=== PATIENT | male | born 1995 ===

== ENCOUNTER 2018-04-25 00:16 | Emergency (ER) | payer MEDICAID ==
[2018-04-25 00:57] VITALS: BMI 27.2
[2018-04-25 01:02] VITALS: RESP 18; O2SAT 100
[2018-04-25] MEDS ORDERED: Sodium Chloride 0.9% 1,000 ML IV STA (01:07)
[2018-04-25] MEDS ORDERED: Apap-Butalbital-Caffeine 325-50-40mg Tab PO ONE (01:28)
--- NOTE | 2018-04-25 01:43 | ED PDOC ---
Arrival/HPI - General Chief Complaint: Headache Time Seen by Provider: 04/25/18 01:01 Historian: Patient - History of Present Illness Narrative History of Present Illness (Text): 04/25/18 01:40 22 year old male, whose past medical history includes chronic headaches, presents to the emergency department with headache, since today. Patient informs having no changes in vision. Patient states he usually gets headaches in the cold, and he is in the cold often due to homelessness. Patient denies taking any medication for relief. Patient denies any abdominal pain, nausea, vomiting, diarrhea, fever, chills, chest pain, shortness of breath, or any other complaints. Time/Duration: Prior to Arrival, Other (Chronic) Symptom Onset: Gradual Symptom Course: Unchanged Quality: Pressure Past Medical History - Provider Review Nursing Documentation Reviewed: Yes - Cardiac Hx Hypertension: No - Pulmonary Hx Tuberculosis: No - Neurological Hx Seizures: No - Hematological/Oncological Hx Cancer: No - Genitourinary/Gynecological Hx Sexually Transmitted Diseases: No - Psychiatric Hx Substance Use: Yes - Surgical History Other/Comment: Rt pinky surgery. - Anesthesia Hx Anesthesia: Yes Family/Social History - Physician Review Nursing Documentation Reviewed: Yes Family/Social History: No Known Family HX Smoking Status: Light Smoker < 10 Cigarettes Daily Hx Alcohol Use: Yes Hx Substance Use: Yes Allergies/Home Meds Allergies/Adverse Reactions: Allergies No Known Allergies Allergy (Verified 04/25/18 00:58) Review of Systems - Physician Review All systems were reviewed & negative as marked: Yes - Review of Systems Constitutional: absent: Fevers, Night Sweats Eyes: absent: Vision Changes Respiratory: absent: SOB Cardiovascular: absent: Chest Pain Gastrointestinal: absent: Abdominal Pain, Diarrhea, Nausea, Vomiting Neurological: Headache Physical Exam Vital Signs Reviewed: Yes Vital Signs Temp Pulse Resp BP Pulse Ox 04/25/18 01:01 98.7 F 66 18 123/66 100 Temperature: Afebrile Blood Pressure: Normal Pulse: Regular Respiratory Rate: Normal Appearance: Positive for: Well-Appearing, Non-Toxic, Comfortable Pain Distress: None Mental Status: Positive for: Alert and Oriented X 3 - Systems Exam Head: Present: Atraumatic, Normocephalic Pupils: Present: PERRL Extroacular Muscles: Present: EOMI Conjunctiva: Present: Normal Mouth: Present: Moist Mucous Membranes Neck: Present: Normal Range of Motion Respiratory/Chest: Present: Clear to Auscultation, Good Air Exchange. No: Respiratory Distress, Accessory Muscle Use Cardiovascular: Present: Regular Rate and Rhythm, Normal S1, S2. No: Murmurs Abdomen: No: Tenderness, Distention, Peritoneal Signs Back: Present: Normal Inspection Upper Extremity: Present: Normal Inspection. No: Cyanosis, Edema Lower Extremity: Present: Normal Inspection. No: Edema Neurological: Present: Speech Normal Skin: Present: Warm, Dry, Normal Color. No: Rashes Psychiatric: Present: Alert, Oriented x 3, Normal Insight, Normal Concentration Medical Decision Making ED Course and Treatment: 04/25/18 01:46 Impression: 22 year old male presents with headache Plan: -- Fioricet -- Toradol -- Drug screen -- Reassess and disposition Prior Visits: Notes and results from previous visits were reviewed. Progress Notes: - Medication Orders Current Medication Orders: Discontinued Medications Acetaminophen/Butalbital/Caffeine (Fioricet) 1 tab PO ONCE ONE Stop: 04/25/18 01:29 Ketorolac Tromethamine (Toradol) 60 mg IM STAT STA Stop: 04/25/18 01:27 - Scribe Statement The provider has reviewed the documentation as recorded by the Edwigeibjass Geiger Provider Scribe Attestation: All medical record entries made by the Scribe were at my direction and personally dictated by me. I have reviewed the chart and agree that the record accurately reflects my personal performance of the history, physical exam, medical decision making, and the department course for this patient. I have also personally directed, reviewed, and agree with the discharge instructions and disposition. Disposition/Present on Arrival - Present on Arrival Any Indicators Present on Arrival: No History of DVT/PE: No History of Uncontrolled Diabetes: No Urinary Catheter: No History of Decub. Ulcer: No History Surgical Site Infection Following: None - Disposition Have Diagnosis and Disposition been Completed?: Yes Diagnosis: Headache Disposition: HOME/ ROUTINE Disposition Time: 02:19 Condition: IMPROVED Discharge Instructions (ExitCare): Cluster Headache (DC), Tension Headache (DC) Print Language: POLISH Additional Instructions: All medical record entries made by the Scribe were at my direction and personally dictated by me. I have reviewed the chart and agree that the record accurately reflects my personal performance of the history, physical exam, medical decision making, and the department course for this patient. I have also personally directed, reviewed, and agree with the discharge instructions and disposition. Prescriptions: Acetaminophen/Butalbital/Caf [Fioricet] 1 tab PO Q6H #2 tab Referrals: Lianet Durham MD [Medical Doctor] - Follow up with primary [facility] [place] - Follow up with primary Forms: [facility] (French)
[2018-04-25 03:08] LABS: BARBITURATES, UR NEGATIVE (NEGATIVE); BENZODIAZEPINES, UR NEGATIVE (NEGATIVE); OPIATES, UR NEGATIVE (NEGATIVE); PHENCYCLIDINE, UR NEGATIVE (NEGATIVE)
[2018-04-25 03:57] VITALS: BP 120/64; PULSE 68; TEMP 98.5
== END 2018-04-25 02:50 | disposition home or self-care (01) ==
LOC: ED 00:16
DX: R51 Headache (principal)

== ENCOUNTER 2018-04-30 01:47 | Emergency (ER) | payer MEDICAID ==
[2018-04-30 01:47] VITALS: BMI 27.2
[2018-04-30 02:58] VITALS: RESP 18; TEMP 98
[2018-04-30] MEDS ORDERED: Sodium Chloride 0.9% 1,000 ML IV STA (02:59)
--- NOTE | 2018-04-30 03:09 | ED PDOC ---
Arrival/HPI - General Chief Complaint: Abdominal Pain Time Seen by Provider: 04/30/18 02:43 Historian: Patient - History of Present Illness Narrative History of Present Illness (Text): 04/30/18 03:05 22 year old male, whose past medical history includes an adjustment disorder, presents to the emergency department complaining of rt lower abdominal discomfort x 1 day. Patient states he was working out prior and is unsure if possibly he may have caused a muscle strain. Patient denies any fever, chills, chest pain, shortness of breath, nausea, vomiting, diarrhea, urinary symptoms, back pain, neck pain, headache, dizziness, or any other complaints. Time/Duration: 24 hours Symptom Onset: Gradual Symptom Course: Unchanged Activities at Onset: Light Context: Exertion Past Medical History - Provider Review Nursing Documentation Reviewed: Yes - Infectious Disease Hx of Infectious Diseases: None - Cardiac Hx Hypertension: No - Pulmonary Hx Tuberculosis: No - Neurological Hx Seizures: No - Hematological/Oncological Hx Cancer: No - Genitourinary/Gynecological Hx Sexually Transmitted Diseases: No - Psychiatric Hx Substance Use: Yes - Surgical History Other/Comment: Rt pinky surgery. - Anesthesia Hx Anesthesia: Yes Hx Anesthesia Reactions: No Hx Malignant Hyperthermia: No Family/Social History - Physician Review Nursing Documentation Reviewed: Yes Family/Social History: Unknown Family HX Smoking Status: Light Smoker < 10 Cigarettes Daily Hx Alcohol Use: Yes Hx Substance Use: Yes Allergies/Home Meds Allergies/Adverse Reactions: Allergies No Known Allergies Allergy (Verified 04/30/18 02:59) Home Medications: Home Meds Medication Instructions Recorded Confirmed No Known Home Med 04/30/18 04/30/18 Review of Systems - Physician Review All systems were reviewed & negative as marked: Yes - Review of Systems Constitutional: Normal Eyes: Normal ENT: Normal Respiratory: Normal. absent: SOB, Cough Cardiovascular: Normal. absent: Chest Pain Gastrointestinal: Abdominal Pain (RLQ pain). absent: Diarrhea, Nausea, Vomiting Genitourinary Male: Normal. absent: Dysuria, Frequency Musculoskeletal: Normal. absent: Back Pain, Neck Pain Skin: Normal. absent: Rash Neurological: Normal. absent: Headache, Dizziness Endocrine: Normal Hemo/Lymphatic: Normal Psychiatric: Normal Physical Exam Vital Signs Reviewed: Yes Vital Signs Temp Pulse Resp Pulse Ox 04/30/18 02:55 98 F 69 18 100 Temperature: Afebrile Blood Pressure: Normal Pulse: Regular Respiratory Rate: Normal Appearance: Positive for: Well-Appearing, Non-Toxic, Comfortable Pain Distress: None Mental Status: Positive for: Alert and Oriented X 3 - Systems Exam Head: Present: Atraumatic, Normocephalic Pupils: Present: PERRL Extroacular Muscles: Present: EOMI Conjunctiva: Present: Normal Mouth: Present: Moist Mucous Membranes Neck: Present: Normal Range of Motion Respiratory/Chest: Present: Clear to Auscultation, Good Air Exchange. No: Respiratory Distress, Accessory Muscle Use Cardiovascular: Present: Regular Rate and Rhythm, Normal S1, S2. No: Murmurs Abdomen: Present: Tenderness (right lower abdomen), Normal Bowel Sounds. No: Distention, Peritoneal Signs, Rebound, Guarding, Hernias Back: Present: Normal Inspection Upper Extremity: Present: Normal Inspection. No: Cyanosis, Edema Lower Extremity: Present: Normal Inspection. No: Edema Neurological: Present: GCS=15, CN II-XII Intact, Speech Normal, Motor Func Grossly Intact, Normal Sensory Function Skin: Present: Warm, Dry, Normal Color. No: Rashes Psychiatric: Present: Alert, Oriented x 3, Normal Insight, Normal Concentration Medical Decision Making ED Course and Treatment: 04/30/18 03:09 Impression: 22 year old male presents to the Emergency department complaining of RLQ pain x day. Plan: -- CT Abd/Pelvis -- Labs -- UA -- Reassess and disposition Progress Notes: 04/30/18 05:[address] scan study.Understands in full risk including possibility of appendicitis/infection/.Patient to sign out Against Medical Advice. - RAD Interpretation Radiology Orders: 04/30/18 03:01 ABD & PELVIS IV CONTRAST ONLY [CT] Stat - Medication Orders Current Medication Orders: Sodium Chloride (Sodium Chloride 0.9%) 1,000 mls @ 999 mls/hr IV .Q1H1M STA Stop: 04/30/18 03:59 - Scribe Statement The provider has reviewed the documentation as recorded by the Scribjass Mcdermott All medical record entries made by the Scribe were at my direction and personally dictated by me. I have reviewed the chart and agree that the record accurately reflects my personal performance of the history, physical exam, medical decision making, and the department course for this patient. I have also personally directed, reviewed, and agree with the discharge instructions and disposition. Disposition/Present on Arrival - Present on Arrival Any Indicators Present on Arrival: No History of DVT/PE: No History of Uncontrolled Diabetes: No Urinary Catheter: No History of Decub. Ulcer: No History Surgical Site Infection Following: None - Disposition Have Diagnosis and Disposition been Completed?: Yes Diagnosis: Abdominal pain Disposition: AGAINST MEDICAL ADVICE Disposition Time: 05:23 Patient Problems: Current Active Problems Problem Status Onset Abdominal pain Acute Condition: STABLE Referrals: Bruna Sotelo [Primary Care Provider] - Follow up with primary Forms: [employer] (Yakut)
[2018-04-30 03:55] LABS: MEAN CELL VOLUME 87.7 fl (80.0-105.0); MEAN CORPUSCULAR HEMOGLOBIN 28.4 pg (25.0-35.0); MEAN CORPUSCULAR HGB CONC 32.3 g/dl (31.0-37.0); MEAN PLATELET VOLUME 9.5 fl (7.0-11.0); RBC 4.23 10^6/uL (3.5-6.1); RED CELL DISTRIBUTION WIDTH 13.7 % (11.5-14.5); WHITE BLOOD COUNT 8.8 10^3/uL (4.5-11.0)
[2018-04-30 04:24] LABS: ALB/GLOB RATIO 1.4 (1.1-1.8); ALBUMIN 3.8 g/dL (3.0-4.8); ALT/SGPT 29 U/L (7-56); AST/SGOT 17 U/L (17-59); BLOOD UREA NITROGEN 17 mg/dL (7-21); CALCIUM 8.9 mg/dL (8.4-10.5); GFR NON-AFRICAN AMERICAN > 60; LIPASE 42 U/L (23-300)
[2018-04-30] MEDS ORDERED: Iohexol 300 100 ML IJ ONE (04:42)
[2018-04-30 05:58] VITALS: BP 139/88; PULSE 67; O2SAT 99
== END 2018-04-30 05:30 | disposition left against medical advice (07) ==
LOC: ED 01:47
DX: R10.31 Right lower quadrant pain (principal); F17.210 Nicotine dependence, cigarettes, uncomplicated
CPT/HCPCS: 80053; 81003; 83690; 85027; 96360; 99285; J7030; Q9967

== ENCOUNTER 2018-05-01 00:13 | Emergency (ER) | payer MEDICAID ==
[2018-05-01 00:13] VITALS: BMI 27.2
== END 2018-05-01 02:48 | disposition left against medical advice (07) ==
LOC: ED 00:13
DX: Z02.89 Encounter for other administrative examinations (principal); R10.9 Unspecified abdominal pain

== ENCOUNTER 2018-05-03 02:17 | Emergency (ER) | payer MEDICAID ==
[2018-05-03 02:18] VITALS: BMI 27.2
[2018-05-03 03:14] VITALS: TEMP 97.9; O2SAT 99
--- NOTE | 2018-05-03 03:14 | ED PDOC ---
Arrival/HPI - General Chief Complaint: Headache Time Seen by Provider: 05/03/18 02:21 Historian: Patient - History of Present Illness Narrative History of Present Illness (Text): 05/03/18 03:12 Ruddy Laguna is a 22 year old male, whose past medical history includes chronic headaches and adjustment disorder, who presents to the Emergency department complaining of headache. Patient states he has been experiencing a mild headache, similar to prior chronic headaches. Patient also reports he is homeless and is requesting a place to stay. Patient denies any fever, chills, chest pain, shortness of breath, nausea, vomiting, diarrhea, urinary symptoms, back pain, neck pain, focal neurological deficits, dizziness, or any other complaints. Symptom Onset: Gradual Symptom Course: Unchanged Activities at Onset: Light Context: Street Past Medical History - Provider Review Nursing Documentation Reviewed: Yes - Infectious Disease Hx of Infectious Diseases: None - Cardiac Hx Hypertension: No - Pulmonary Hx Tuberculosis: No - Neurological Hx Seizures: No - Hematological/Oncological Hx Cancer: No - Genitourinary/Gynecological Hx Sexually Transmitted Diseases: No - Psychiatric Hx Substance Use: Yes - Surgical History Other/Comment: Rt pinky surgery. - Anesthesia Hx Anesthesia: Yes Hx Anesthesia Reactions: No Hx Malignant Hyperthermia: No Family/Social History - Physician Review Nursing Documentation Reviewed: Yes Family/Social History: Unknown Family HX Smoking Status: Light Smoker < 10 Cigarettes Daily Hx Alcohol Use: Yes Hx Substance Use: Yes Allergies/Home Meds Allergies/Adverse Reactions: Allergies No Known Allergies Allergy (Verified 04/30/18 02:59) Home Medications: Home Meds Medication Instructions Recorded Confirmed RX: No Known Home Med 04/30/18 05/03/18 Review of Systems - Physician Review All systems were reviewed & negative as marked: Yes - Review of Systems Constitutional: Normal. absent: Fevers Eyes: Normal ENT: Normal Respiratory: Normal. absent: SOB, Cough Cardiovascular: Normal. absent: Chest Pain Gastrointestinal: Normal. absent: Abdominal Pain, Diarrhea, Nausea, Vomiting Genitourinary Male: Normal. absent: Dysuria, Frequency, Hematuria, Urinary Output Changes Musculoskeletal: Normal. absent: Back Pain, Neck Pain Skin: Normal. absent: Rash Neurological: Headache. absent: Dizziness Endocrine: Normal Hemo/Lymphatic: Normal Psychiatric: Normal Physical Exam Vital Signs Reviewed: Yes Temperature: Afebrile Blood Pressure: Normal Pulse: Regular Respiratory Rate: Normal Appearance: Positive for: Well-Appearing, Non-Toxic, Comfortable Pain Distress: None Mental Status: Positive for: Alert and Oriented X 3 - Systems Exam Head: Present: Atraumatic, Normocephalic Pupils: Present: PERRL Extroacular Muscles: Present: EOMI Conjunctiva: Present: Normal Mouth: Present: Moist Mucous Membranes Neck: Present: Normal Range of Motion Respiratory/Chest: Present: Clear to Auscultation, Good Air Exchange. No: Respiratory Distress, Accessory Muscle Use Cardiovascular: Present: Regular Rate and Rhythm, Normal S1, S2. No: Murmurs Abdomen: No: Tenderness, Distention, Peritoneal Signs Back: Present: Normal Inspection Upper Extremity: Present: Normal Inspection. No: Cyanosis, Edema Lower Extremity: Present: Normal Inspection. No: Edema Neurological: Present: GCS=15, CN II-XII Intact, Speech Normal Skin: Present: Warm, Dry, Normal Color. No: Rashes Psychiatric: Present: Alert, Oriented x 3, Normal Insight, Normal Concentration Medical Decision Making ED Course and Treatment: 05/03/18 03:12 Impression: 22 year old homeless male complaining of chronic headache, requesting a place to stay. Plan: -- Reassess and disposition Progress Notes: - Scribe Statement The provider has reviewed the documentation as recorded by the [employer] Provider Scribe Attestation: All medical record entries made by the Scribe were at my direction and personally dictated by me. I have reviewed the chart and agree that the record accurately reflects my personal performance of the history, physical exam, medical decision making, and the department course for this patient. I have also personally directed, reviewed, and agree with the discharge instructions and disposition. Disposition/Present on Arrival - Present on Arrival Any Indicators Present on Arrival: No History of DVT/PE: No History of Uncontrolled Diabetes: No Urinary Catheter: No History of Decub. Ulcer: No History Surgical Site Infection Following: None - Disposition Have Diagnosis and Disposition been Completed?: Yes Diagnosis: Chronic headache disorder Disposition: HOME/ ROUTINE Disposition Time: 06:30 Condition: IMPROVED Referrals: Bruna Sotelo [Primary Care Provider] - Follow up with primary Forms: [employer] (Thai)
[2018-05-03 06:07] VITALS: BP 131/68; PULSE 78; RESP 17
== END 2018-05-03 06:21 | disposition home or self-care (01) ==
LOC: ED 02:17
DX: G89.29 Other chronic pain (principal); R51 Headache; F17.210 Nicotine dependence, cigarettes, uncomplicated; Z59.0 Homelessness

== ENCOUNTER 2018-05-17 02:56 | Emergency (ER) | payer MEDICAID ==
[2018-05-17 02:57] VITALS: BMI 27.2
[2018-05-17 03:07] VITALS: RESP 18; TEMP 97.9; O2SAT 100
--- NOTE | 2018-05-17 03:11 | ED PDOC ---
Arrival/HPI - General Chief Complaint: Headache Time Seen by Provider: 05/17/18 03:03 Historian: Patient - History of Present Illness Narrative History of Present Illness (Text): 05/17/18 03:08 Ruddy Laguna is a 22 year old male, whose past medical history includes chronic headaches and adjustment disorder, who presents to the Emergency department complaining of headache. Patient states he has been experiencing a frontal headache, similar to prior chronic headaches. Patient states he did not taken any medication for pain at home. Patient denies any head trauma/injury, fever, chills, chest pain, shortness of breath, nausea, vomiting, back pain, neck pain, focal neurological deficits, dizziness, or any other complaints. Symptom Onset: Gradual Symptom Course: Unchanged Activities at Onset: Light Context: Home Past Medical History - Provider Review Nursing Documentation Reviewed: Yes - Infectious Disease Hx of Infectious Diseases: None - Cardiac Hx Hypertension: No - Pulmonary Hx Tuberculosis: No - Neurological Hx Seizures: No - Hematological/Oncological Hx Cancer: No - Genitourinary/Gynecological Hx Sexually Transmitted Diseases: No - Psychiatric Hx Substance Use: Yes - Surgical History Other/Comment: Rt pinky surgery. - Anesthesia Hx Anesthesia: Yes Hx Anesthesia Reactions: No Hx Malignant Hyperthermia: No Family/Social History - Physician Review Nursing Documentation Reviewed: Yes Family/Social History: Unknown Family HX Smoking Status: Light Smoker < 10 Cigarettes Daily Hx Alcohol Use: Yes Hx Substance Use: Yes Allergies/Home Meds Allergies/Adverse Reactions: Allergies No Known Allergies Allergy (Verified 04/30/18 02:59) Home Medications: Home Meds Medication Instructions Recorded Confirmed No Known Home Med 04/30/18 05/17/18 Review of Systems - Physician Review All systems were reviewed & negative as marked: Yes - Review of Systems Constitutional: Normal. absent: Fevers Eyes: Normal ENT: Normal Respiratory: Normal. absent: SOB, Cough Cardiovascular: Normal. absent: Chest Pain Gastrointestinal: Normal. absent: Abdominal Pain, Diarrhea, Nausea, Vomiting Genitourinary Male: Normal. absent: Dysuria, Frequency, Hematuria, Urinary Output Changes Musculoskeletal: Normal. absent: Back Pain, Neck Pain Skin: Normal. absent: Rash Neurological: Headache. absent: Dizziness Endocrine: Normal Hemo/Lymphatic: Normal Psychiatric: Normal Physical Exam Vital Signs Reviewed: Yes Vital Signs Temp Pulse Resp BP Pulse Ox 05/17/18 03:05 97.9 F 85 18 133/57 L 100 Temperature: Afebrile Blood Pressure: Normal Pulse: Regular Respiratory Rate: Normal Appearance: Positive for: Well-Appearing, Non-Toxic, Comfortable Pain Distress: None Mental Status: Positive for: Alert and Oriented X 3 - Systems Exam Head: Present: Atraumatic, Normocephalic Pupils: Present: PERRL Extroacular Muscles: Present: EOMI Conjunctiva: Present: Normal Mouth: Present: Moist Mucous Membranes Neck: Present: Normal Range of Motion. No: Meningeal Signs, MIDLINE TENDERNESS, Paraspinal Tenderness Respiratory/Chest: Present: Clear to Auscultation, Good Air Exchange. No: Respiratory Distress, Accessory Muscle Use Cardiovascular: Present: Regular Rate and Rhythm, Normal S1, S2. No: Murmurs Abdomen: No: Tenderness, Distention, Peritoneal Signs Back: Present: Normal Inspection Upper Extremity: Present: Normal Inspection. No: Cyanosis, Edema Lower Extremity: Present: Normal Inspection. No: Edema Neurological: Present: GCS=15, CN II-XII Intact, Speech Normal, Motor Func Grossly Intact, Normal Sensory Function, Normal Cerebellar Funct Skin: Present: Warm, Dry, Normal Color. No: Rashes Psychiatric: Present: Alert, Oriented x 3, Normal Insight, Normal Concentration Medical Decision Making ED Course and Treatment: 05/17/18 03:08 Impression: 22 year old male complaining of a headache. Plan: -- Tylenol -- Reassess and disposition Progress Notes: - Scribe Statement The provider has reviewed the documentation as recorded by the [employer] Provider Scribe Attestation: All medical record entries made by the Scribjass were at my direction and perso ayala dictated by me. I have reviewed the chart and agree that the record accurately reflects my personal performance of the history, physical exam, medical decision making, and the department course for this patient. I have also personally directed, reviewed, and agree with the discharge instructions and disposition. Disposition/Present on Arrival - Present on Arrival Any Indicators Present on Arrival: No History of DVT/PE: No History of Uncontrolled Diabetes: No Urinary Catheter: No History of Decub. Ulcer: No History Surgical Site Infection Following: None - Disposition Have Diagnosis and Disposition been Completed?: Yes Diagnosis: Tension headache Disposition: HOME/ ROUTINE Disposition Time: 04:04 Patient Plan: Discharge Condition: GOOD Discharge Instructions (ExitCare): Tension Headache (DC) Additional Instructions: Rest/No strenuous activity next few days/Tylenol as directed for headache/follow up with your doctor Forms: [employer] (Sri Lankan)
[2018-05-17 04:21] VITALS: BP 130/78; PULSE 82
== END 2018-05-17 04:18 | disposition home or self-care (01) ==
LOC: ED 02:56
DX: G44.209 Tension-type headache, unspecified, not intractable (principal); F17.210 Nicotine dependence, cigarettes, uncomplicated